=== PATIENT | male | born 1960 | race Caucasian/White ===

== ENCOUNTER 2024-03-20 04:19 | Day surgery (SDC) | payer OTHER ==
[2024-03-15 13:11] VITALS: BMI 33.5
[2024-03-20] MEDS ORDERED: ROCURONIUM BROMIDE 50 MG/5 ML SYRINGE ONE (10:18)
[2024-03-20] MEDS ORDERED: FENTANYL CITRATE/PF 50 MCG/ML VIAL ONE ×2 (10:18→11:00)
[2024-03-20] MEDS ORDERED: ceFAZolin SODIUM 1 GM VIAL ONE (10:18)
[2024-03-20] MEDS ORDERED: DEXAMETHASONE SOD PHOSPHATE 4 MG/1 ML VIAL ONE (10:18)
[2024-03-20] MEDS ORDERED: PROPOFOL 20 ML ONE (10:18)
[2024-03-20] MEDS ORDERED: ONDANSETRON 4 MG/2 ML VIAL ONE (10:18)
[2024-03-20] MEDS ORDERED: MIDAZOLAM HCL 2 MG/2 ML SINGLE DOSE VIAL ONE (10:19)
[2024-03-20] MEDS: ceFAZolin SODIUM 1 GM VIAL IVPB ONE (10:36)
[2024-03-20] MEDS ORDERED: oxyCODONE HCL 5 MG TABLET PO PRN (12:10)
[2024-03-20] MEDS ORDERED: ONDANSETRON 4 MG/2 ML VIAL IVPUSH PRN (12:10)
[2024-03-20] MEDS: LACTATED RINGERS SOLUTION 1,000 ML IV SCH (13:02)
[2024-03-20 13:31] VITALS: RESP 18
[2024-03-20 14:34] VITALS: BP 137/84; PULSE 67; TEMP 97.8
== END 2024-03-20 14:45 | disposition home or self-care (01) ==
LOC: JASU-SURG 04:19
PROVIDERS: ATTEND Urology
PROC: 0V507ZZ Destruction of Prostate, Via Natural or Artificial Opening (ICD-10-PCS; principal; 2024-03-20 10:30)
DX: C61 Malignant neoplasm of prostate (principal)
CPT/HCPCS: 94760